=== PATIENT | female | born 1940 | race Caucasian/White ===

== ENCOUNTER → 2016-08-06 | Outpatient (CLI) | payer SELFPAY | END | disposition home or self-care (01) | LOC: YCFC.O 09:02 | PROVIDERS: ATTEND Nurse Practitioner Family | DX: I10 Essential (primary) hypertension (principal); E78.2 Mixed hyperlipidemia ==

== ENCOUNTER → 2018-10-13 | Outpatient (CLI) | payer OTHER | LOC: LAB.O 10:30 | PROVIDERS: ATTEND Nurse Practitioner Family | DX: I10 Essential (primary) hypertension (principal); E78.2 Mixed hyperlipidemia ==

== ENCOUNTER 2020-02-18 14:54 | Emergency (ER) | payer MEDICARE, OTHER, SELFPAY ==
--- NOTE | 2020-02-18 17:19 | ED.PDOC ---
History of Present Illness - General Time Seen by Provider: 02/18/20 15:54 Source: patient, family Exam Limitations: no limitations - History of Present Illness Initial Comments: The patient is an 79 year old with past medical history significant for HTN, HLD, asthma who presents to the Emergency Department complaining of shortness of breath, chest tightness, fatigue. Symptoms have been ongoing for two months and are worse with exertion. She also complains of associated fatigue and decreased PO intake. She does note a week or two of melanic stools prior to this episode. No other complaints at this time. Allergies/Adverse Reactions: Allergies Diazepam [From Valium] Adverse Reaction (Verified 11/02/13 13:33) Hydrocodone Adverse Reaction (Verified 02/18/20 17:21) Home Medications: Ambulatory Orders Albuterol Inhaler [Ventolin Hfa Inhaler] 90 mcg INH Q4H PRN 11/02/13 Citalopram Hydrobromide 20 mg PO DAILY 11/02/13 Fluticasone Propionate Hfa [Flovent Hfa] 220 mcg IN BID 11/02/13 Lisinopril & Hydrochlorothiazi [Lisinopril/Hctz 10-12.5 mg] 1 tab PO DAILY 11/02/13 [place]-3 Fatty Acids [[place] 3 1000 mg] 1 cap PO DAILY 11/02/13 Pravastatin Sodium 80 mg PO BEDTIME 11/02/13 cloNAZepam [Klonopin] 0.5 mg PO BEDTIME 11/02/13 HYDROcodone 5MG/APAP 325MG [[place] 5/325] 1 ea PO Q4-6H PRN #40 tab 11/05/13 levoFLOXacin [Levaquin] 500 mg PO QDAC #10 tab 11/05/13 Review of Systems - Review of Systems Constitutional: States: malaise, weakness. Denies: chills, fever EENTM: States: no symptoms reported Respiratory: States: short of breath, wheezing. Denies: cough, orthopnea Cardiology: Denies: chest pain, palpitations Gastrointestinal/Abdominal: States: see HPI, constipation, nausea, vomiting. Denies: abdominal pain, diarrhea Genitourinary: States: no symptoms reported Musculoskeletal: States: no symptoms reported Skin: States: change in color - pallor Neurological: States: no symptoms reported Endocrine: States: no symptoms reported Hematologic/Lymphatic: States: no symptoms reported All other Systems: Reviewed and Negative Past Medical History (General) - Patient Medical History Hx Seizures: No Hx Stroke: No Hx Asthma: Yes Hx of COPD: No Hx Cardiac Disorders: Yes Hx Congestive Heart Failure: No Hx Pacemaker: No Hx Hypertension: Yes Hx Diabetes: No Hx MRSA: No - Social History Hx Alcohol Use: No Hx Substance Use: No Hx Physical Abuse: No Hx Emotional Abuse: No Family Medical History - Family History Mother Family History: Unknown Physical Exam - Physical Exam General Appearance: Alert, Comfortable, No apparent distress Eye Exam: left conjunctivae pale Ears, Nose, Throat: hearing grossly normal, normal ENT inspection, normal pharynx Neck: non-tender, full range of motion Respiratory: no respiratory distress, no accessory muscle use, wheezing - expiratory wheezing bilaterally Cardiovascular/Chest: regular rate, rhythm, no edema, no gallop, no JVD, no murmur Gastrointestinal/Abdominal: non tender, soft, no organomegaly, no pulsatile mass Extremity: normal range of motion, non-tender, normal inspection Neurologic: no motor/sensory deficits, alert, normal mood/affect, oriented x 3 Skin Exam: pallor Lymphatic: no adenopathy Progress - Progress Progress: 02/18/20 20:21 Patient with significant anemia, likely secondary to iron deficiency and history is suggestive of chronic GI losses. Hospitalist recommends transfer for higher level of care and possible GI evaluation. Elevated troponin likely secondary to demand ischemia due to severe anemia. No active hemorrhage. Will initiate blood transfusion. 02/18/20 23:38 Discussed with doctors at [facility], patient accepted for transfer for higher level of care. - Results/Orders Results/Orders: 02/18/20 18:30 PC [PACKED CELLS,LR] Stat TYPE AND SCREEN Stat 02/18/20 21:23 RESPIRATORY PANEL 2 Stat Laboratory Results - last 24 hr 02/18/20 02/18/20 02/18/20 17:29 17:53 17:53 WBC RBC Hgb Hct MCV MCH MCHC RDW Plt Count MPV Absolute Neuts (auto) Absolute Lymphs (auto) Absolute Monos (auto) Absolute Eos (auto) Absolute Basos (auto) Neutrophils % Lymphocytes % Monocytes % Eosinophils % Basophils % Normal RBC Morphology Sodium Potassium Chloride Carbon Dioxide Anion Gap BUN Creatinine BUN/Creatinine Ratio POC Glucose 114 H Random Glucose Serum Osmolality Calcium Iron 7 L TIBC 478.8 H Iron Saturation 1.40 L Ferritin 4.4 L Creatine Kinase CK-MB (CK-2) CK-MB (CK-2) % Troponin I B-Natriuretic Peptide Patient ABO/Rh Antibody Screen Crossmatch 02/18/20 02/18/20 02/18/20 18:09 18:09 18:09 WBC 7.7 RBC 2.70 L Hgb 3.9 L* Hct 13.8 L MCV 51.1 L MCH 14.4 L MCHC 28.2 L RDW 19.8 H Plt Count 288 MPV 8.6 Absolute Neuts (auto) 4.90 Absolute Lymphs (auto) 1.60 Absolute Monos (auto) 1.10 H Absolute Eos (auto) 0.00 Absolute Basos (auto) 0.10 Neutrophils % 63.5 Lymphocytes % 21.4 Monocytes % 13.7 H Eosinophils % 0.2 L Basophils % 1.2 Normal RBC Morphology Stain quality accept Sodium 139 Potassium 3.8 Chloride 102 Carbon Dioxide 25 Anion Gap 15.8 BUN 29 H Creatinine 1.31 H BUN/Creatinine Ratio 22.1 H POC Glucose Random Glucose 98 Serum Osmolality 283.3 Calcium 8.8 Iron TIBC Iron Saturation Ferritin Creatine Kinase 195 H CK-MB (CK-2) 6.6 H* CK-MB (CK-2) % 3.38 Troponin I 0.08 H* B-Natriuretic Peptide 399.0 H* Patient ABO/Rh Antibody Screen Crossmatch 02/18/20 02/18/20 18:30 19:09 WBC RBC Hgb 3.8 L* Hct 14.0 L MCV MCH MCHC RDW Plt Count MPV Absolute Neuts (auto) Absolute Lymphs (auto) Absolute Monos (auto) Absolute Eos (auto) Absolute Basos (auto) Neutrophils % Lymphocytes % Monocytes % Eosinophils % Basophils % Normal RBC Morphology Sodium Potassium Chloride Carbon Dioxide Anion Gap BUN Creatinine BUN/Creatinine Ratio POC Glucose Random Glucose Serum Osmolality Calcium Iron TIBC Iron Saturation Ferritin Creatine Kinase CK-MB (CK-2) CK-MB (CK-2) % Troponin I B-Natriuretic Peptide Patient ABO/Rh A POSITIVE Antibody Screen Negative Crossmatch See Detail Departure - Departure Clinical Impression: Anemia Qualifiers: Anemia type: iron deficiency Iron deficiency anemia type: chronic blood loss Qualified Code(s): D50.0 - Iron deficiency anemia secondary to blood loss (chronic) Time of Disposition: 23:39 Disposition: Transfer to Hospital Condition: Fair Referrals: CHARIS BROWN [Primary Care Provider] - 1-2 Weeks Home Medications: Ambulatory Orders Albuterol Inhaler [Ventolin Hfa Inhaler] 90 mcg INH Q4H PRN 11/02/13 Citalopram Hydrobromide 20 mg PO DAILY 11/02/13 Fluticasone Propionate Hfa [Flovent Hfa] 220 mcg IN BID 11/02/13 Lisinopril & Hydrochlorothiazi [Lisinopril/Hctz 10-12.5 mg] 1 tab PO DAILY 11/02/13 [place]-3 Fatty Acids [[place] 3 1000 mg] 1 cap PO DAILY 11/02/13 Pravastatin Sodium 80 mg PO BEDTIME 11/02/13 cloNAZepam [Klonopin] 0.5 mg PO BEDTIME 11/02/13 HYDROcodone 5MG/APAP 325MG [[place] 5/325] 1 ea PO Q4-6H PRN #40 tab 11/05/13 levoFLOXacin [Levaquin] 500 mg PO QDAC #10 tab 11/05/13
[2020-02-18] MEDS ORDERED: IPRATROPIUM/ALBUTEROL 3 ML VIAL NEB ONE (17:49)
[2020-02-18] MEDS ORDERED: predniSONE 20 MG TAB PO ONE (17:49)
[2020-02-18] MEDS ORDERED: ONDANSETRON ODT 8 MG TAB SL ONE (17:49)
[2020-02-18] MEDS ORDERED: SODIUM CHLORIDE 0.9% (FLUSH) 10 ML SYG ONE (18:18)
--- NOTE | 2020-02-18 18:46 | RAD ---
EXAM DESCRIPTION: Chest,1 View CLINICAL HISTORY: 79 years Female shortness of breath COMPARISON: November 02, 2013. TECHNIQUE: AP view of the chest was obtained. FINDINGS: Cardiac silhouette is enlarged. Central vessels are increased and indistinct. Patient is lordotic in positioning. Streaky perihilar airspace opacities bilaterally. Small right pleural effusion. No effusion on left. No pneumothorax. IMPRESSION: Enlarged heart with mild congestive heart failure. Bilateral perihilar and infrahilar infiltrate versus atelectatic change or pulmonary congestion. Electronically signed by: Kalie Luther MD 02/18/2020 6:44 PM [facility]
[2020-02-18] MEDS ORDERED: SODIUM CHLORIDE 0.9% 500ML 500 ML ONE (23:30)
[2020-02-19] MEDS ORDERED: SODIUM CHLORIDE 0.9% 500ML 500 ML ONE (01:40)
[2020-02-19 02:00] VITALS: BP 132/82; O2SAT 99
[2020-02-19 02:23] VITALS: TEMP 99.2
== END 2020-02-19 02:17 | disposition short-term general hospital (02) ==
LOC: ER 14:54
DX: D50.0 Iron deficiency anemia secondary to blood loss (chronic) (principal); R79.89 Other specified abnormal findings of blood chemistry; K59.00 Constipation, unspecified; R11.2 Nausea with vomiting, unspecified; R06.02 Shortness of breath; R06.2 Wheezing; I10 Essential (primary) hypertension; I51.9 Heart disease, unspecified; J45.909 Unspecified asthma, uncomplicated; E78.00 Pure hypercholesterolemia, unspecified; R07.89 Other chest pain; R53.83 Other fatigue; Z20.822 Contact with and (suspected) exposure to COVID-19; Z79.899 Other long term (current) drug therapy; Z88.8 Allergy status to other drugs, medicaments and biological substances; Z88.5 Allergy status to narcotic agent
CPT/HCPCS: 36415; 36416; 71045; 80048; 82550; 82553; 82728; 82948; 83540; 83550; 83880; 84484; 85014; 85018; 85025; 86922; 87635; A4216; J7040; J7512; J7620; P9016